=== PATIENT | female | born 1935 | race Caucasian/White ===

== ENCOUNTER 2016-06-12 14:17 | Emergency (ER) | payer SELFPAY ==
[~2016-06-12] VITALS: Wt 80.0 kg
[~2016-06-12 14:17] MED LIST: AMLO2.5T2; ATEN-51; CALC-445; DICL75; DOCU100C; FAMO-30; FURO40TA4; ICNREG; INSULIN ISOPHANE; LEVO25TA9; LISI40TA9; METF500T4; NOVOLIN NPH; POTA10TA97; ZOC10; [UNRECOGNIZED DRUG - CODE]; [UNRECOGNIZED DRUG - OTHER]
== END 2016-06-12 17:39 | disposition left against medical advice (07) ==
LOC: FTE 14:17
DX: Z53.21 Procedure and treatment not carried out due to patient leaving prior to being seen by health care provider (principal)